=== PATIENT | female | born 1985 | race African-American/Black ===

== ENCOUNTER 2018-11-12 11:29 | Emergency (ER) | payer OTHER ==
[2018-11-12] MEDS ORDERED: METOCLOPRAMIDE 10 MG/2mL INJ ONE (13:57)
[2018-11-12] MEDS ORDERED: NA CHLORIDE 0.9% 1,000 ML ONE (13:57)
[2018-11-12] MEDS ORDERED: DIPHENHYDRAMINE 50 MG/ML VIAL ONE (13:57)
--- NOTE | 2018-11-12 14:26 | RAD REPORT ---
EXAM DESCRIPTION: CT - Head Brain Wo Cont - 11/12/2018 2:14 pm CLINICAL HISTORY: Headache, dizziness, numbness to the fingertips COMPARISON: None. TECHNIQUE: Axial 5 mm thick images of the head were obtained without IV contrast. All CT scans are performed using dose optimization technique as appropriate and may include automated exposure control or mA/KV adjustment according to patient size. FINDINGS: No intracranial hemorrhage, mass, edema or shift of mid-line structures. No acute infarcti on changes seen. No abnormal extra-axial fluid collections. Ventricles are normal. Mastoid air cells and visualized portions of the paranasal sinuses are clear. No acute bony findings. No significant change from comparison. IMPRESSION: Negative non-contrast CT head examination.
[2018-11-12 14:38] LABS: ALT/SGPT 18 U/L (12-78); AST/SGOT 19 U/L (15-37); Albumin 3.5 g/dL (3.4-5.0); Alkaline Phosphatase 79 U/L (45-117); BUN Blood Urea Nitrogen 12 mg/dL (7-18); Bicarbonate 27 mmol/L (21-32); Bilirubin Total 0.5 mg/dL (0.2-1.0); Glucose Level 94 mg/dL (74-106); Potassium 4.4 mmol/L (3.5-5.1); Protein, Total 8.2 g/dL (6.4-8.2); Sodium Level 139 mmol/L (136-145)
[2018-11-12 14:43] LABS: Absolute Lymphocytes (CBC) 2.1 K/uL (0.7-4.9); Absolute Monocytes 0.4 K/uL (0.1-1.3); Absolute Neutrophil 2.6 K/uL (1.8-8.0); Basophils % 0.5 % (0-1.3); Eosinophils % 1.2 % (0-4.4); Hematocrit 36.3 % (36.0-45.0); Lymphocytes % 40.1 % (15.3-44.8); Monocytes % 7.5 % (3.3-12.3); RBC Red Blood Cell Count 4.92 M/uL (3.86-4.86)
[2018-11-12] MEDS ORDERED: MECLIZINE HCL 12.5 MG TAB ONE ×2 (16:21→16:23)
--- NOTE | 2018-11-12 17:09 | ER ---
Nurse's Notes [facility] Name: Sangita Albrecht Age: 33 yrs Sex: Female : 1985 Arrival Date: 11/12/2018 Time: 11:35 Bed 24 Private MD: None, None Diagnosis: Chronic Headache;Dizziness Presentation: 11/12 11:37 Presenting complaint: Patient states: Dizziness and numbness to the fingertips on both aj1 hands for the past couple of months. Reports an episode of chest pain last week, but none today. Denies SOB, syncope. Transition of care: patient was not received from another setting of care. Onset of symptoms was August 2018. Risk Assessment: Do you want to hurt yourself or someone else? Patient reports no desire to harm self or others. Initial Sepsis Screen: Does the patient meet any 2 criteria? No. Patient's initial sepsis screen is negative. Does the patient have a suspected source of infection? No. Patient's initial sepsis screen is negative. Care prior to arrival: None. 11:37 Method Of Arrival: Ambulatory [facility] 11:37 Acuity: SHANI 3 [facility] Triage Assessment: 11:39 Headache History: The patient has had previous headaches and this one is similar to aj1 previous episodes. General: Appears in no apparent distress. uncomfortable, Behavior is calm, cooperative, appropriate for age. Pain: Complains of pain in left parietal area and right parietal area Pain currently is 8 out of 10 on a pain scale. Pain began 2 months ago Also complains of dizziness. Neuro: Level of Consciousness is awake, alert, obeys commands, Oriented to person, place, time, situation, Moves all extremities. Full function Gait is steady, Speech is normal, Facial symmetry appears normal, Reports dizziness, headache Denies blurred vision syncope. Cardiovascular: Patient's skin is warm and dry. Respiratory: Airway is patent Respiratory effort is even, unlabored, Respiratory pattern is regular, symmetrical. 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 - Social history:: Smoking status: unknown. - Ebola Screening: : No symptoms or risks identified at this time. Screenin:19 Abuse screen: Denies threats or abuse. Nutritional screening: No deficits noted. tl3 Tuberculosis screening: No symptoms or risk factors identified. Fall Risk None identified. Assessment: 13:19 General: Appears uncomfortable, well groomed, well developed, well nourished, Behavior tl3 is cooperative, appropriate for age, anxious. Pain: Complains of pain in scalp and right parietal area and left parietal area Pain began 2 months ago, pain is in the frontal area and the back of her head, also states that her thumbs and three fingers on each hand go numb. Neuro: No deficits noted. Level of Consciousness is awake, alert, obeys commands. Cardiovascular: Clubbing of nail beds. Respiratory: Airway is patent Respiratory effort is even, unlabored, Respiratory pattern is regular, symmetrical. GI: No signs and/or symptoms were reported involving the gastrointestinal system. : No signs and/or symptoms were reported regarding the genitourinary system. EENT: No signs and/or symptoms were reported regarding the EENT system. Derm: No signs and/or symptoms reported regarding the dermatologic system. 15:09 Reassessment: Patient and/or family updated on plan of care and expected duration. Pain tl3 level reassessed. Patient is alert, oriented x 3, equal unlabored respirations, skin warm/dry/pink. pt resting quietly. Vital Signs: 11:39 BP 140 / 85; Pulse 79; Resp 18; Temp 97.7; Pulse Ox 99% on R/A; Weight 95.25 kg (R); aj1 Height 4 ft. 11 in. (149.86 cm) (R); Pain 8/10; 15:09 BP 133 / 73; Pulse 79; Resp 16; Pulse Ox 100% on R/A; tl3 16:19 BP 123 / 72; Pulse 77; Resp 18; Pulse Ox 100% on R/A; tl3 17:15 BP 123 / 68; Pulse 65; Resp 18; Pulse Ox 100% on R/A; tl3 11:39 Body Mass Index 42.41 (95.25 kg, 149.86 cm) aj1 ED Course: 11:35 Patient arrived in ED. mr 11:35 None, None is Private Physician. mr 11:38 Triage completed. aj1 11:39 Arm band placed on Patient placed in waiting room, Patient notified of wait time. aj1 13:05 Bettina Ivy, RN is Primary Nurse. tl3 13:15 Adam Powers PA is PHCP. jmm 13:15 Amando Negron MD is Attending Physician. m 13:19 Patient has correct armband on for positive identification. Bed in low position. Call tl3 light in reach. Side rails up X 1. Pulse ox on. NIBP on. 13:19 No provider procedures requiring assistance completed. tl3 13:30 Initial lab(s) drawn, by me, sent to lab. Inserted saline lock: 20 gauge in right tl3 antecubital area, using aseptic technique. Blood collected. 14:04 CT Head Brain wo Cont Sent. tl3 14:13 EKG done, by dietary tech. reviewed by Adam BERGERON. at1 14:15 CT Head Brain wo Cont In Process Unspecified. EDMS 17:08 Shravan Sharma MD is Referral Physician. jmm 17:15 IV discontinued, intact, bleeding controlled, No redness/swelling at site. Pressure tl3 dressing applied. Administered Medications: 14:03 Drug: diphenhydrAMINE 12.5 mg Route: IVP; Infused Over: 2 mins; Site: right antecubital;tl3 14:39 Follow up: Response: No adverse reaction; Marked relief of symptoms tl3 14:04 Drug: Reglan 10 mg Route: IVP; Infused Over: 2 mins; Site: right antecubital; tl3 14:39 Follow up: Response: No adverse reaction; Marked relief of symptoms tl3 14:38 Drug: NS 0.9% 1000 ml Route: IV; Rate: 1 bolus; Site: right antecubital; Delivery: tl3 Primary tubing; 17:40 Follow up: IV Status: Completed infusion; IV Intake: 1000ml tl3 16:12 Drug: Meclizine 50 mg Route: PO; tl3 17:39 Follow up: Response: No adverse reaction tl3 Intake: 17:40 IV: 1000ml; Total: 1000ml. tl3 Outcome: 17:09 Discharge ordered by . jmm 17:15 Discharged to home ambulatory. tl3 17:15 Condition: stable 17:15 Discharge instructions given to patient, Instructed on discharge instructions, follow up and referral plans. medication usage, Demonstrated understanding of instructions, follow-up care, medications, Prescriptions given X 1. 17:42 Patient left the ED. tl3 Signatures: Dispatcher [employer] EDMayra Morley, RN RN aj1 Adam Powers PA PA jmm Rivera, Mary mr Maritza Huitron, trailer driver EKG Tat1 Bettina Ivy, KRISTEL RN tl3
--- NOTE | 2018-11-12 17:10 | EDPHYS ---
Physician Documentation [facility] Name: Sangita Albrecht Age: 33 yrs Sex: Female : 1985 Arrival Date: 11/12/2018 Time: 11:35 Bed 24 Private MD: None, None ED Physician Amando Negron HPI: 11/12 13:43 This 33 yrs old Black Female presents to ER via Ambulatory with complaints of Headache, jmm Dizziness, Numbness Of Hand. 13:43 The patient complains of pain to the left side of the back of head, left occipital jmm area, left base of the skull, right side of the back of head, right occipital area and right base of the skull. The patient describes the headache as aching. Onset: The symptoms/episode began/occurred gradually, yesterday. This is a 33 year old female with a history of htn that presents to the ED with complaints of headache beginning gradually yesterday. Patient has had similar headaches over the past 10 years. Patient denies changes in vision. Patient currently complains of tingling to the fingers. Denies focal weakness. . 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 - Social history:: Smoking status: unknown. - Ebola Screening: : No symptoms or risks identified at this time. ROS: 13:43 Constitutional: Negative for fever, chills, and weight loss. jmm 13:43 Respiratory: Negative for shortness of breath, cough, wheezing, and pleuritic chest pain, Abdomen/GI: Negative for abdominal pain, nausea, vomiting, diarrhea, and constipation. 13:43 Cardiovascular: Positive for chest pain. 13:43 Neuro: Positive for headache. 13:43 All other systems are negative. Exam: 13:43 Head/Face: atraumatic. Eyes: EOMI, no conjunctival erythema appreciated ENT: Moist jmm Mucus Membranes Neck: Trachea midline, Supple Chest/axilla: Normal chest wall appearance and motion. 13:43 Abdomen/GI: Non distended, soft Back: Normal ROM 13:43 Constitutional: The patient appears alert, awake, anxious, uncomfortable. 13:43 Cardiovascular: Rate: normal, Rhythm: regular. 13:43 Respiratory: the patient does not display signs of respiratory distress, Respirations: normal, Breath sounds: are clear throughout. 13:43 Neuro: Orientation: is normal, Mentation: is normal, Memory: is normal, Cerebellar function: normal finger to nose testing, Gait: is steady. 13:43 Psych: Behavior/mood is pleasant, cooperative. Vital Signs: 11:39 BP 140 / 85; Pulse 79; Resp 18; Temp 97.7; Pulse Ox 99% on R/A; Weight 95.25 kg (R); aj1 Height 4 ft. 11 in. (149.86 cm) (R); Pain 8/10; 15:09 BP 133 / 73; Pulse 79; Resp 16; Pulse Ox 100% on R/A; tl3 16:19 BP 123 / 72; Pulse 77; Resp 18; Pulse Ox 100% on R/A; tl3 17:15 BP 123 / 68; Pulse 65; Resp 18; Pulse Ox 100% on R/A; tl3 11:39 Body Mass Index 42.41 (95.25 kg, 149.86 cm) aj1 MDM: 13:43 Patient medically screened. [facility] 17:07 Data reviewed: vital signs, nurses notes. Counseling: I had a detailed discussion with [facility] the patient and/or guardian regarding: the historical points, exam findings, and any diagnostic results supporting the discharge/admit diagnosis, lab results, radiology results, the need for outpatient follow up, to return to the emergency department if symptoms worsen or persist or if there are any questions or concerns that arise at home. ED course: Patient;s symptoms have resolved in the ED. Neuro exam is normal. Due to chronic headaches patient is advised to follow up with neuro for further evaluation. Patient is otherwise given strict return precautions. . 11/12 13:44 Order name: CBC with Diff; Complete Time: 14:54 [facility] 11/12 13:44 Order name: CMP; Complete Time: 14:54 [facility] 11/12 13:44 Order name: CT Head Brain wo Cont; Complete Time: 14:38 [facility] 11/12 13:44 Order name: Saline Lock; Complete Time: 14:04 [facility] 11/12 13:44 Order name: EKG - Nurse/Tech; Complete Time: 14:39 [facility] Administered Medications: 14:03 Drug: diphenhydrAMINE 12.5 mg Route: IVP; Infused Over: 2 mins; Site: right antecubital;tl3 14:39 Follow up: Response: No adverse reaction; Marked relief of symptoms tl3 14:04 Drug: Reglan 10 mg Route: IVP; Infused Over: 2 mins; Site: right antecubital; tl3 14:39 Follow up: Response: No adverse reaction; Marked relief of symptoms tl3 14:38 Drug: NS 0.9% 1000 ml Route: IV; Rate: 1 bolus; Site: right antecubital; Delivery: tl3 Primary tubing; 17:40 Follow up: IV Status: Completed infusion; IV Intake: 1000ml tl3 16:12 Drug: Meclizine 50 mg Route: PO; tl3 17:39 Follow up: Response: No adverse reaction tl3 Disposition: 11/12/18 17:09 Discharged to Home. Impression: Chronic Headache, Dizziness. - Condition is Stable. - Discharge Instructions: General Headache Without Cause, Vertigo. - Prescriptions for Meclizine 25 mg Oral Tablet - take 1 tablet by ORAL route every 8 hours As needed; 30 tablet. - Medication Reconciliation Form, Thank You Letter, Antibiotic Education, Prescription Opioid Use, Work release form form. - Follow up: Shravan Sharma MD; When: 2 - 3 days; Reason: Recheck today's complaints, Continuance of care, Re-evaluation by your physician. Addendum: 11/15/2018 07:15 Co-signature as Attending Physician, Amando Negron MD I agree with the assessment and k dr plan of care. Signatures: Dispatcher [employer] EDMS Mayra Rinaldi, RN RN aj1 Amando Negron MD MD kdr Mickail, Joel, PA PA jmm Lowrey, Tammy, RN RN tl3 Corrections: (The following items were deleted from the chart) 11/12 17:42 17:09 11/12/2018 17:09 Discharged to Home. Impression: Chronic Headache; Dizziness. tl3 Condition is Stable. Forms are Work release form, Medication Reconciliation Form, Thank You Letter, Antibiotic Education, Prescription Opioid Use. Follow up: Shravan Sharma; When: 2 - 3 days; Reason: Recheck today's complaints, Continuance of care, Re-evaluation by your physician. brien
--- NOTE | 2018-11-13 07:47 | EKG ---
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
== END 2018-11-12 17:42 | disposition home or self-care (01) ==
LOC: ER 11:29
DX: R51 Headache (principal); R42 Dizziness and giddiness; I10 Essential (primary) hypertension; D57.3 Sickle-cell trait
CPT/HCPCS: 36415; 70450; 80053; 85025; 93005; 96361; 96374; 96375; 99284; J2765; J7030

== ENCOUNTER 2020-03-31 02:30 | Emergency (ER) | payer BC, OTHER ==
[2020-03-31 04:26] LABS: Absolute Lymphocytes (CBC) 0.9 K/uL (0.7-4.9); Basophils % 0.6 % (0-1.3); Hematocrit 33.4 % (36.0-45.0); Lymphocytes % 17.3 % (15.3-44.8); RBC Red Blood Cell Count 4.62 M/uL (3.86-4.86)
[2020-03-31 05:14] LABS: ALT/SGPT 21 U/L (12-78); AST/SGOT 17 U/L (15-37); Albumin 3.3 g/dL (3.4-5.0); Alkaline Phosphatase 78 U/L (45-117); BUN Blood Urea Nitrogen 8 mg/dL (7-18); Bicarbonate 25 mmol/L (21-32); Bilirubin Direct < 0.1 mg/dL (0-0.2); Bilirubin Total 0.3 mg/dL (0.2-1.0); Glucose Level 143 mg/dL (74-106); Lipase 64 U/L (73-393); Potassium 4.2 mmol/L (3.5-5.1); Protein, Total 7.8 g/dL (6.4-8.2); Sodium Level 140 mmol/L (136-145)
[2020-03-31] MEDS ORDERED: ONDANSETRON 4 MG/2 ML VIAL ONE (05:34)
--- NOTE | 2020-03-31 05:41 | ER ---
Nurse's Notes [facility] Name: Sangita Albrecht Age: 34 yrs Sex: Female : 1985 Arrival Date: 03/31/2020 Time: 02:35 Bed 20 Private MD: Paulette Bell Diagnosis: Nausea with vomiting, unspecified;Acute upper respiratory infection, unspecified Presentation: 03/31 02:38 Acuity: SHANI 3 sg 02:53 Chief complaint: Patient states: I have a headache, with body aches as well as having sg nausea and vomiting x2 symptom onset 3 days ago. Coronavirus screen: Proceed with normal triage. Ebola Screen: Patient negative for fever greater than or equal to 101.5 degrees Fahrenheit, and additional compatible Ebola Virus Disease symptoms Patient denies exposure to infectious person. Patient denies travel to an Ebola-affected area in the 21 days before illness onset. No symptoms or risks identified at this time. Initial Sepsis Screen: Does the patient meet any 2 criteria? No. Patient's initial sepsis screen is negative. Does the patient have a suspected source of infection? No. Patient's initial sepsis screen is negative. Risk Assessment: Do you want to hurt yourself or someone else? Patient reports no desire to harm self or others. Onset of symptoms was March 31, 2020. Care prior to arrival: None. Transition of care: patient was not received from another setting of care. 02:53 Method Of Arrival: Ambulatory sg 02:53 Note states having a cough, with shortness of breath as well. sg Historical: - Allergies: 02:37 NKA; sg - PMHx: 02:37 Hypertension; Sickle Cell Trait; sg - Immunization history:: Adult Immunizations up to date. - Social history:: Smoking status: Patient denies any tobacco usage or history of. Screenin:00 Abuse screen: Denies threats or abuse. Nutritional screening: No deficits noted. jb4 Tuberculosis screening: No symptoms or risk factors identified. Fall Risk None identified. Assessment: 03:00 General: Appears in no apparent distress. uncomfortable, Behavior is calm, cooperative, jb4 appropriate for age. Pain: Complains of pain in Body aches and lower back pain. Pain does not radiate. Pain currently is 8 out of 10 on a pain scale. Quality of pain is described as aching, Pain began 2-3 days ago. Is continuous. Neuro: Level of Consciousness is awake, alert, obeys commands, Oriented to person, place, time, situation. Cardiovascular: Patient's skin is warm and dry. Respiratory: Airway is patent Respiratory effort is even, unlabored, Respiratory pattern is regular, symmetrical. GI: Abdomen is non-distended, obese, Reports nausea. : No signs and/or symptoms were reported regarding the genitourinary system. EENT: No signs and/or symptoms were reported regarding the EENT system. Derm: Skin is intact, Skin is dry, Skin is normal, Skin temperature is warm. Musculoskeletal: Circulation, motion, and sensation intact. Range of motion: intact in all extremities. 04:04 Reassessment: Patient appears in no apparent distress at this time. Patient and/or jb4 family updated on plan of care and expected duration. Pain level reassessed. Patient is alert, oriented x 3, equal unlabored respirations, skin warm/dry/pink. Vital Signs: 02:52 BP 137 / 71; Pulse 94; Temp 99.3; Pulse Ox 100% on R/A; tt3 02:53 Resp 16; sg 04:38 BP 132 / 66; Pulse 89; Resp 16; Pulse Ox 100% on R/A; sg ED Course: 02:35 Patient arrived in ED. es 02:36 Paulette Bell MD is Private Physician. es 02:38 Triage completed. sg 02:38 Arm band placed on. sg 02:45 Quinten Atwood RN is Primary Nurse. jb4 02:57 John Casarez MD is Attending Physician. tw4 03:00 Patient has correct armband on for positive identification. Bed in low position. Call jb4 light in reach. Side rails up X 1. Pulse ox on. NIBP on. 04:10 Primary Nurse role handed off by Quinten Atwood, RN sg 04:10 Joseph Barajas, RN is Primary Nurse. sg 04:10 Inserted saline lock: 22 gauge in right antecubital area, using aseptic technique. oe Blood collected. 05:05 CXR XRAY In Process Unspecified. EDMS 05:24 Throat Culture Sent. sg 05:40 Paulette Bell MD is Referral Physician. tw4 05:51 No provider procedures requiring assistance completed. IV discontinued, intact. sg Administered Medications: 05:28 Drug: Zofran (Ondansetron) 4 mg Route: IVP; Site: right antecubital; sg Outcome: 05:41 Discharge ordered by MD. [email or web address] 05:51 Discharged to home ambulatory. sg 05:51 Condition: good 05:51 Discharge instructions given to patient, Instructed on discharge instructions, follow up and referral plans. medication usage, safety practices, Demonstrated understanding of instructions, follow-up care, medications, Prescriptions given X 2. 05:52 Patient left the ED. sg Addendum: 04/02/2020 15:23 Addendum: Other Patient notified of positive COVID-[address] Gaines. Pt s s verbalizes understanding importance of self isolation and returning to the ED for any worsening of symptoms. Pt reports mild URI symptoms. Signatures: Dispatcher [employer] EDJoseph Turcios RN KRISTEL Sally Hairston Shelby, RN RN Quinten Atwood RN RN jb4 Thuan Diaz Terrence, MD MD tw4 Marcelino Leon tt3 Corrections: (The following items were deleted from the chart) 03/31 03:09 02:53 Coronavirus screen: Proceed with normal triage. [facility] 03:45 02:53 Chief complaint: Patient states: I have a headache, with body aches as well as sg having nausea and vomiting x2 sg
--- NOTE | 2020-03-31 05:41 | EDPHYS ---
Physician Documentation [facility] Name: Sangita Albrecht Age: 34 yrs Sex: Female : 1985 Arrival Date: 03/31/2020 Time: 02:35 Bed 20 Private MD: Paulette Bell ED Physician John Casarez HPI: 03/31 05:37 This 34 yrs old Black Female presents to ER via Ambulatory with complaints of tw4 Nausea/Vomiting, Headache, Body ache. 05:37 The patient presents to the emergency department with nausea, vomiting. Onset: The tw4 symptoms/episode began/occurred yesterday. Possible causes: unknown. The symptoms are aggravated by nothing. The symptoms are alleviated by nothing. Associated signs and symptoms: Pertinent positives: sore throat headache, SOB. Severity of symptoms: At their worst the symptoms were mild in the emergency department the symptoms are unchanged. The patient has not experienced similar symptoms in the past. pt states she has had contact with a positive covid patient. Historical: - Allergies: 02:37 NKA; sg - PMHx: 02:37 Hypertension; Sickle Cell Trait; sg - Immunization history:: Adult Immunizations up to date. - Social history:: Smoking status: Patient denies any tobacco usage or history of. ROS: 05:37 Constitutional: Negative for fever, chills, and weight loss, Eyes: Negative for injury, tw4 pain, redness, and discharge. 05:37 ENT: Positive for sore throat. 05:37 Cardiovascular: Positive for Negative for chest pain, edema, orthopnea. 05:37 Respiratory: Positive for shortness of breath. 05:37 Abdomen/GI: Positive for nausea, vomiting, Negative for abdominal pain, anorexia. 05:37 Neuro: Positive for headache. Exam: 05:37 Constitutional: This is a well developed, well nourished patient who is awake, alert, tw4 and in no acute distress. Head/Face: Normocephalic, atraumatic. Chest/axilla: Normal chest wall appearance and motion. Nontender with no deformity. No lesions are appreciated. Cardiovascular: Regular rate and rhythm with a normal S1 and S2. No gallops, murmurs, or rubs. Normal PMI, no JVD. No pulse deficits. Respiratory: Lungs have equal breath sounds bilaterally, clear to auscultation and percussion. No rales, rhonchi or wheezes noted. No increased work of breathing, no retractions or nasal flaring. Abdomen/GI: Soft, non-tender, with normal bowel sounds. No distension or tympany. No guarding or rebound. No evidence of tenderness throughout. MS/ Extremity: Pulses equal, no cyanosis. Neurovascular intact. Full, normal range of motion. Neuro: Awake and alert, GCS 15, oriented to person, place, time, and situation. Cranial nerves II-XII grossly intact. Motor strength 5/5 in all extremities. Sensory grossly intact. Cerebellar exam normal. Normal gait. Psych: Awake, alert, with orientation to person, place and time. Behavior, mood, and affect are within normal limits. 05:37 ENT: Posterior pharynx: erythema, that is moderate. Vital Signs: 02:52 BP 137 / 71; Pulse 94; Temp 99.3; Pulse Ox 100% on R/A; tt3 02:53 Resp 16; sg 04:38 BP 132 / 66; Pulse 89; Resp 16; Pulse Ox 100% on R/A; sg MDM: 05:37 Differential diagnosis: Nonspecific abd pain, gastritis, cholecystitis, pancreatitis, tw4 appendicitis. Data reviewed: vital signs, nurses notes. Data reviewed: lab test result(s), CBC, electrolytes, radiologic studies, plain films. Counseling: I had a detailed discussion with the patient and/or guardian regarding: the historical points, exam findings, and any diagnostic results supporting the discharge/admit diagnosis, lab results, radiology results. 05:40 Data interpreted: Pulse oximetry: Interpretation:. 05:41 Patient medically screened. 03/31 02:45 Order name: Basic Metabolic Panel; Complete Time: 05:23 03/31 05:23 Interpretation: Normal except: GLUC 143. 03/31 02:45 Order name: CBC with Diff; Complete Time: 05:23 03/31 05:23 Interpretation: Normal except: HGB 10.7; HCT 33.4; MCV 72.3; MCH 23.1; MCHC 31.9. 03/31 02:45 Order name: Hepatic Function; Complete Time: 05:23 03/31 05:23 Interpretation: Normal except: ALB 3.3; GLOB 4.5; A/G 0.7. 03/31 02:45 Order name: Lipase; Complete Time: 05:23 03/31 05:23 Interpretation: Abnormal: LIP 64. 03/31 02:45 Order name: COVID-19 03/31 02:45 Order name: Flu; Complete Time: 05:23 03/31 02:45 Order name: IV Saline Lock; Complete Time: 04:15 03/31 02:45 Order name: Labs collected and sent; Complete Time: 04:15 03/31 02:45 Order name: Strep; Complete Time: 05:23 03/31 02:45 Order name: Document PUI#; Complete Time: 03:38 03/31 02:47 Order name: [facility] 03/31 04:40 Order name: CXR XRAY 03/31 05:18 Order name: Throat Culture [facility] 03/31 02:45 Order name: Droplet/Contact Precautions; Complete Time: 03:38 03/31 02:45 Order name: Labs collected and sent; Complete Time: 03:38 03/31 02:45 Order name: Notify Health Dept [id number]/ ; Complete Time: 03:38 03/31 02:45 Order name: O2 Per Protocol; Complete Time: 03:38 Administered Medications: 05:28 Drug: Zofran (Ondansetron) 4 mg Route: IVP; Site: right antecubital; sg Disposition: 03/31/20 05:41 Discharged to Home. Impression: Nausea with vomiting, unspecified, Acute upper respiratory infection, unspecified. - Condition is Stable. - Discharge Instructions: General Headache Without Cause, Nausea and Vomiting, Adult, Nausea, Adult, Upper Respiratory Infection, Pediatric, Viral Respiratory Infection. - Prescriptions for Ibuprofen 800 mg Oral Tablet - take 1 tablet by ORAL route every 8 hours As needed take with food; 30 tablet. Zofran 4 mg Oral Tablet - take 1 tablet by ORAL route every 12 hours As needed; 6 tablet. - Work release form, Medication Reconciliation Form, Thank You Letter, Antibiotic Education, Prescription Opioid Use form. - Follow up: Paulette Bell MD; When: Upon discharge from the Emergency Department; Reason: Recheck today's complaints, Continuance of care, Re-evaluation by your physician. - Problem is new. - Symptoms have improved. Signatures: Dispatcher [employer] Joseph Roberson RN RN John Nieves MD MD tw4 Corrections: (The following items were deleted from the chart) 05:52 05:41 03/31/2020 05:41 Discharged to Home. Impression: Nausea with vomiting, sg unspecified; Acute upper respiratory infection, unspecified. Condition is Stable. Forms are Medication Reconciliation Form, Thank You Letter, Antibiotic Education, Prescription Opioid Use. Follow up: Paulette Bell; When: Upon discharge from the Emergency Department; Reason: Recheck today's complaints, Continuance of care, Re-evaluation by your physician. Problem is new. Symptoms have improved. tw4
[2020-03-31 06:02] VITALS: TEMP 99.3; O2SAT 100
[2020-03-31 06:05] VITALS: BP 132/66
--- NOTE | 2020-03-31 07:42 | RAD REPORT ---
EXAM DESCRIPTION: RAD - Chest Single View - 03/31/2020 5:05 am CLINICAL HISTORY: COUGH COMPARISON: December 2016 TECHNIQUE: AP portable chest image was obtained 03/31/2020 5:05 am . FINDINGS: Lung volumes are low. No peripheral mass or consolidation. Heart and vasculature are accen tuated by body habitus affects, shallow inspiration and portable technique. True or significant failu re or volume overload are doubtful. No measurable pleural effusion and no pneumothorax. No acute bony abnormality seen. No acute aortic findings suspected. IMPRESSION: Exam is limited but no acute cardiopulmonary finding seen. Follow-up two-view examination could be performed if the patient remains symptomatic.
--- OUTSIDE RECORDS SUMMARY | 2020-03-31 13:55 | XMS REPORT | Continuity of Care Document ---
:1985 Author Organization [facility] t Address [address] [place] [address] Care Team Providers Name Role Phone Unavailable Unavailable Unavailable Problems Condition Condition Condition Status Onset Resolution Last Treating Co mments Source Name Details Category Date Date Treatment Clinician Date Tension-ty Tension-ty Problem Active [facility] - headache, headache, Gunner yogi not not l intractabl intractabl Ou tpati e, e, ent unspecifie unspecifie Cl inics d d chronicity chronicity pattern pattern Morbid Morbid Problem Active [facility] obesity obesity [facility] - [facility] ent Clinics Sickle Sickle Problem Active [facility] cell trait cell trait Samia kes - [facility]oria l [facility] ent Clinics Dizziness Dizziness Diagnosis Active [facility] - [facility] ent Clinics Anemia, Anemia, Problem Active [facility] unspecifie unspecifie Samia kes - d type d type Memoria l [facility] ent Clinics Elevated Elevated Problem Active [facility] BP without BP without Samia kes - diagnosis diagnosis Gunner yogi of of l hypertensi hypertensi Ou tpati on on ent Clinics Fatigue, Fatigue, Problem Active [facility] t unspecifie unspecifie Samia kes - d type d type Memoria [facility] ent Clinics Body mass Body mass Diagnosis Active [facility] index index [facility] - (BMI) of (BMI) of Memori a 45.0-49.9 45.0-49.9 l in adult in adult Outpat i ent Clinics Feeling Feeling Problem Active [facility] stressed stressed [facility] - out out Memoria l [facility] ent Clinics Dietary Dietary Problem Active [facility] counseling counseling Samia kes - and and Memoria surveillan surveillan l ce ce [facility] ent Clinics Paresthesi Paresthesi Diagnosis Active [facility] as as [facility] - [facility] ent Clinics Abnormal Abnormal Diagnosis Active [facility] laboratory laboratory Samia kes - test test [facility] Chest Chest Problem Active [facility] pain, pain, [facility] - unspecifie unspecifie Me moria d type d type [facility] Vitamin D Vitamin D Diagnosis Active [facility] deficiency deficiency Samia kes - [facility] Prediabete Prediabete Diagnosis Active [facility] s [facility] Allergies, Adverse Reactions, Alerts This patient has no known allergies or adverse reactions. Medications Ordered Filled Start Stop Current Ordering Indication Dosage Frequency Signature Comments Components Source Medication Medication Date Date Medication? Clinician (SIG) Name Name Vitamin D Vitamin D 2019- No Paulette [address] [facility] (Ergocalcif (Ergocalcif 02-03 [facility] - ele) ele) 00:00: 00:00 [facility] 00 :00 [facility] Multi Multi Yes Paulette as [facility] Complete Complete Millender directed [facility] Procedures This patient has no known procedures. Encounters Start End Encounter Admission Attending Care Care Encounter Source Date/Time Date/Time Type Type Clinicians Facility Department ID 2020-03-02 2020-03-02 Emergency E [facility] [id number] [facility] 10:33:00 10:33:00 2019-02-03 2019-02-03 [facility] [id number] [facility] 09:40:00 09:40:00 [facility] 2019-01-30 2019-01-30 [facility] [id number] [facility] 14:36:00 14:36:00 [facility] 2018-11-16 2018-11-16 [facility] [id number] 14:30:00 14:30:00 [facility] Results This patient has no known results.
== END 2020-03-31 05:52 | disposition home or self-care (01) ==
LOC: ER 02:30
DX: J06.9 Acute upper respiratory infection, unspecified (principal); Z20.828 Contact with and (suspected) exposure to other viral communicable diseases; I10 Essential (primary) hypertension
CPT/HCPCS: 87070; 85025; 80048; 36415; 80076; 87081; 83690; 87804 ×2; 71045; 96374; 99284; U0002; J2405